=== PATIENT | female | born 1955 | race Caucasian/White ===

== ENCOUNTER → 2018-11-30 | Outpatient (CLI) | payer OTHER | END | disposition home or self-care (01) | LOC: RD 12:21 | DX: S69.90XD Unspecified injury of unspecified wrist, hand and finger(s), subsequent encounter (principal); X58.XXXA Exposure to other specified factors, initial encounter; Y92.9 Unspecified place or not applicable ==

== ENCOUNTER 2019-06-24 16:25 | Emergency (ER) | payer OTHER ==
[~2019-06-24] VITALS: Ht 165.1 cm; Wt 79.4 kg
[2019-06-24 16:31] VITALS: Ht 165.1 cm; Wt 79.4 kg
[2019-06-24 18:26] LABS: PLATELET COUNT 243 x10^3mcL (130-400); RED CELL DISTRIBUTION WIDTH 12.9 % (11.5-14.5)
[2019-06-24 18:28] LABS: microscopic required? YES; urine erythrocyte NEGATIVE (NEGATIVE)
[2019-06-24 18:29] LABS: BASOPHIL % 0 % (0-2)
[2019-06-24 18:47] LABS: CALCIUM 8.5 mg/dL (8.5-10.1); CARBON DIOXIDE 24.3 mmol/L (21-32); CHLORIDE SERUM 98 mmol/L (98-107); CREATININE SERUM 0.6 mg/dL (0.6-1.0); GFR1 > 60 mL/min; GLUCOSE SERUM 87 mg/dL (74-106); POTASSIUM SERUM 4.1 mmol/L (3.5-5.1); SODIUM SERUM 133 mmol/L (136-145)
[2019-06-24 18:56] LABS: ALBUMIN 3.5 g/dL (3.4-5.0); ALKALINE PHOSPHATASE 46 U/L (46-116); ALT/SGPT 26 U/L (14-59); AST/SGOT 23 U/L (15-37); BILIRUBIN TOTAL 0.4 mg/dL (0.20-1.00); CHOLESTEROL 151 mg/dL (<200); LIPASE 110 IU/L (73-393); TOTAL PROTEIN, SERUM 6.8 g/dL (6.4-8.2)
[2019-06-24 18:59] LABS: T3 TOTAL 0.81 ng/mL
[2019-06-24 19:00] LABS: CHOLESTEROL/HDL RATIO 1.7; HDL CHOLESTEROL 87 mg/dL (40-60); TRIGLYCERIDES 16 mg/dL (<150)
[2019-06-24 19:04] LABS: FREE T4 1.02 ng/dL (0.76-1.46); T4(THYROXINE) 8.9 ug/dL (4.7-13.3)
[2019-06-24 19:32] VITALS: BP 120/60
== END 2019-06-24 19:32 | disposition home or self-care (01) ==
LOC: ED 16:25
PROVIDERS: Specialist
DX: E11.649 Type 2 diabetes mellitus with hypoglycemia without coma (principal); J02.9 Acute pharyngitis, unspecified; R19.7 Diarrhea, unspecified; R21 Rash and other nonspecific skin eruption
CPT/HCPCS: 82962; 83880; 84439; J0696; Q0092